=== PATIENT | male | born 1950 | race Asian ===

== ENCOUNTER 2017-05-23 06:22 | Day surgery (SDC) | payer MEDICARE, OTHER ==
[2017-05-23] MEDS ORDERED: MIDAZOLAM 1 MG/ML 2 ML INJ ×2 (09:42)
[2017-05-23] MEDS ORDERED: FENTAnyl 50 MCG/ML VIAL (09:43)
== END 2017-05-23 11:24 | disposition home or self-care (01) ==
LOC: GIL 06:22
DX: Z12.11 Encounter for screening for malignant neoplasm of colon (principal); D12.5 Benign neoplasm of sigmoid colon; K64.8 Other hemorrhoids; I10 Essential (primary) hypertension
CPT/HCPCS: 45380; 88305